=== PATIENT | male | born 1950 | race Caucasian/White ===

== ENCOUNTER → 2023-12-24 09:36 | Outpatient (REF) | payer OTHER, SELFPAY | LOC: MRI 3T 09:36 | PROVIDERS: ATTENDING PHYSICIAN Specialist; FAMILY PHYSICIAN Student in an Organized Health Care Education/Training Program | DX: R97.20 Elevated prostate specific antigen [PSA] (principal) | CPT/HCPCS: 72197; A9575 ==

== ENCOUNTER 2024-02-12 06:07 | Day surgery (SDC) | payer OTHER, SELFPAY ==
[2024-01-30 11:09] LABS: Hematocrit 36.1 % (39.0-52.0); Hemoglobin 12.3 g/dL (13.0-18.0); Mean Corp Hgb Conc. 34.1 g/dL (33.0-37.0); Mean Corpuscular Hgb 29.6 pg (27.0-31.0); Mean Platelet Volume 10.2 fL (7.4-10.4); Platelet Count 232 10^3/uL (130-400); Red Blood Cell Count 4.15 10^6/uL (4.70-6.10); Red Cell Dist. Width 14.5 % (11.5-14.5); White Blood Cell Count 4.7 10^3/uL (4.8-10.8)
[2024-01-30 11:37] LABS: Blood Urea Nitrogen 19 mg/dl (9-20); Calcium 9.5 mg/dl (8.4-10.2); Carbon Dioxide 28 mmol/L (22-30); Chloride 98 mmol/L (98-107); Glucose 83 mg/dl (70-99); Potassium 4.4 mmol/L (3.5-5.1); Sodium 136 mmol/L (135-145); eGFR > 60.00
[2024-01-30 13:39] VITALS: BMI 25.6
[2024-02-12] VITALS (20 sets, daily range): BP systolic 100–150; BP diastolic 72–96; BMI 25.6
[2024-02-12] MEDS: NEOMYCIN ENEMA 1 BOTTLE RECTAL (07:04)
--- NOTE | 2024-02-12 13:38 | SUR.PHASEI ---
Lunch relief, sleeping, arouses with stimulation vss
--- NOTE | 2024-02-12 13:53 | SUR.PHASEI ---
Sleeping, assessment unchanged
[2024-02-12] MEDS: TORADOL 15 MG IV ×2 (15:26→22:12)
[2024-02-12] MEDS: NORMOSOL-R/PLASMALYTE-A 1000 IV (16:30)
--- NOTE | 2024-02-12 17:00 | PTCARENOTE ---
pt admitted to room 2104 at 1615. pt arrived via bed, awake but sleepy. pt oriented to room, call [place] and plan of care with verbalized understanding. admission and assessment completed as documented. will monitor.
[2024-02-12] MEDS: COLACE 100 MG PO (17:47)
[2024-02-12] MEDS: METAMUCIL, KONSYL 1 PACKET PO ×2 (18:23→22:11)
[2024-02-12] MEDS: ProAIR HFA INHALER 2 PUFF INH (19:22)
[2024-02-12] MEDS: ProAIR HFA INHALER INH (19:22)
[2024-02-12] MEDS: FLOVENT 44 MCG INHALER 2 PUFF INH (19:23)
[2024-02-12] MEDS: XALATAN OPHTHALMIC SOLUTION 1 DROP BOTH EYES (22:11)
[2024-02-12] MEDS: CLARITIN 10 MG PO (23:34)
[2024-02-12] MEDS: TYLENOL 650 MG PO (23:36)
[2024-02-13 03:24] VITALS: BP 125/74
[2024-02-13] MEDS: TORADOL 15 MG IV (03:36)
[2024-02-13 07:20] VITALS: BP 143/87
[2024-02-13] MEDS: ProAIR HFA INHALER 2 PUFF INH (07:48)
[2024-02-13] MEDS: FLOVENT 44 MCG INHALER 2 PUFF INH (07:48)
[2024-02-13] MEDS: COLACE 100 MG PO ×2 (08:09→12:17)
[2024-02-13] MEDS: METAMUCIL, KONSYL 1 PACKET PO (08:10)
[2024-02-13] MEDS: THERAGRAN 1 TABLET PO (08:10)
[2024-02-13] MEDS: VITAMIN D3 (cholecalciferol) 25 MCG PO (08:11)
[2024-02-13] MEDS: VITAMIN C 500 MG PO (08:11)
[2024-02-13] MEDS: DIOVAN 320 MG PO (08:11)
--- NOTE | 2024-02-13 09:22 | CM ---
Met with pt at bedside
Pt reports he lives with his in a 3 story home; 4 steps to enter, bath on FF
Retired, active, driving. Occasionally uses cane when ambulating
DME - single point cane
SNF/HH - no past hx
Has ride home at discharge
PCP - Mellissa Garcia
Pharm - [facility]
CM consult - [facility]
Discussed with pt - receptive to HH. No preference
TT [facility] to [facility] for home services
Plan - anticipate home with VN
--- NOTE | 2024-02-13 10:21 | VNURNOTE ---
Home Health Liaison met with patient at bedside to discuss [facility] nurse/therapy, visits, schedule and homebound status. Patient is agreeable and understands that visits at home will be 2-3 x per week to assess and teach medical and jiang management.
[facility] brochure provided with contact information. Patient is aware that [facility] will contact them for start of care in 1-2 days after discharge from .
[facility] referral completed in [facility].
--- NOTE | 2024-02-13 10:45 | W.PN.URO.CBU ---
Today's Communication / Plan
-
discharge
Assessment / Plan
-
stable
Diagnosis
-
Date of Service: February 13, 2024
-
Patient Diagnosis: prostate cancer s/p prostatectomy
Post Op Day: 1
Subjective
-
feels well
Objective
-
Vital Signs
Temp Pulse Resp BP Pulse Ox
98.2 F 77 14 143/87 97
02/13/24 07:20 02/13/24 08:11 02/13/24 07:53 02/13/24 08:11 02/13/24 07:53
Intake and Output
02/12/24 02/13/24 02/14/24
06:59 06:59 06:59
Intake Total 1630 / 1630
Output Total 1525 / 1525
Balance 105 / 105
Intake:
Oral fluids 630 / 630
IV fluids (Total) 1000 / 1000
Normosol 400 / 400
Output:
Urine, Marley 1525 / 1525
Laboratory Results
01/30/24 09:41
01/30/24 09:41
Physical Exam
-
General - well developed, well nourished, no acute distress
Chest - clear bilaterally
Genitalia - Marley with thinly bloody urine
Rectal - normal
Skin - warm & dry with no rash
Neuro - AOx3, no motor deficits
Extremities - no clubbing, no cyanosis, no edema
Dressings - clean, dry, intact
[2024-02-13 11:19] VITALS: BP 122/71
[2024-02-13] MEDS: ProAIR HFA INHALER INH (11:32)
[2024-02-13] MEDS: CLARITIN 10 MG PO (12:11)
[2024-02-13] MEDS: NORMOSOL-R/PLASMALYTE-A IV (12:14)
[2024-02-13] MEDS: SUDAFED 12 HOUR (EXTENDED RELEASE) 240 MG PO (12:14)
[2024-02-13] MEDS: LIPITOR 10 MG PO (12:17)
[2024-02-13] MEDS: ASPIR LOW (ENTERIC COATED) 81 MG PO (12:17)
--- NOTE | 2024-02-13 12:44 | PTCARENOTE ---
pt and educated regarding Marley catheter care, leg bag application and care and hand irrigation PRN obstruction. both pt and verbalized understanding. Pt tolerated Lunch, had a BM and discharged to home with .
== END 2024-02-13 13:21 | disposition home or self-care (01) ==
LOC: SDS 06:07
PROVIDERS: ATTENDING PHYSICIAN Specialist; FAMILY PHYSICIAN Student in an Organized Health Care Education/Training Program
DX: C61 Malignant neoplasm of prostate (principal); C79.11 Secondary malignant neoplasm of bladder
CPT/HCPCS: 55866; 38571; 88305; 88307; 88309; 88332; 80048; 85027; 88331; 93005; 94640

== ENCOUNTER 2024-03-27 08:33 | Outpatient (RCR) | payer OTHER, SELFPAY | END 2024-03-27 23:59 | disposition home or self-care (01) | LOC: RPT 08:33 | PROVIDERS: ATTENDING PHYSICIAN Specialist | DX: M62.89 Other specified disorders of muscle (principal); D07.5 Carcinoma in situ of prostate; Z73.6 Limitation of activities due to disability; R32 Unspecified urinary incontinence; Z90.79 Acquired absence of other genital organ(s); Z98.890 Other specified postprocedural states | CPT/HCPCS: 97110; 97161; 97530 ==

== ENCOUNTER 2024-05-14 12:00 | Outpatient (RCR) | payer OTHER, SELFPAY | END 2024-05-14 23:59 | disposition home or self-care (01) | LOC: RPT 12:00 | PROVIDERS: ATTENDING PHYSICIAN Specialist | DX: M62.89 Other specified disorders of muscle (principal); D07.5 Carcinoma in situ of prostate; Z73.6 Limitation of activities due to disability; R32 Unspecified urinary incontinence; Z98.890 Other specified postprocedural states; Z90.79 Acquired absence of other genital organ(s) | CPT/HCPCS: 97110; 97112 ==

== ENCOUNTER 2024-06-12 13:04 | Outpatient (RCR) | payer OTHER, SELFPAY | END 2024-06-12 23:59 | disposition home or self-care (01) | LOC: RPT 13:04 | PROVIDERS: ATTENDING PHYSICIAN Specialist | DX: M62.89 Other specified disorders of muscle (principal); D07.5 Carcinoma in situ of prostate; Z73.6 Limitation of activities due to disability; R32 Unspecified urinary incontinence; Z98.890 Other specified postprocedural states; Z90.79 Acquired absence of other genital organ(s) | CPT/HCPCS: 97110; 97112 ==

== ENCOUNTER 2024-07-08 14:23 | Outpatient (RCR) | payer OTHER, SELFPAY | END 2024-07-08 23:59 | disposition home or self-care (01) | LOC: RPT 14:23 | PROVIDERS: ATTENDING PHYSICIAN Specialist | DX: M62.89 Other specified disorders of muscle (principal); D07.5 Carcinoma in situ of prostate; M41.50 Other secondary scoliosis, site unspecified; M48.062 Spinal stenosis, lumbar region with neurogenic claudication; Z73.6 Limitation of activities due to disability; R32 Unspecified urinary incontinence; Z90.79 Acquired absence of other genital organ(s); Z98.890 Other specified postprocedural states | CPT/HCPCS: 97110; 97112; 97164; 97530 ==

== ENCOUNTER → 2024-07-15 13:35 | Outpatient (REF) | payer OTHER, SELFPAY | LOC: HWRAD 13:35 | PROVIDERS: ATTENDING PHYSICIAN Specialist; FAMILY PHYSICIAN Student in an Organized Health Care Education/Training Program | DX: N20.0 Calculus of kidney (principal) | CPT/HCPCS: 74018 ==

== ENCOUNTER → 2024-07-21 13:00 | Outpatient (REF) | payer OTHER, SELFPAY | LOC: PAVMRI 13:00 | PROVIDERS: ATTENDING PHYSICIAN Physician Assistant Medical; FAMILY PHYSICIAN Student in an Organized Health Care Education/Training Program | DX: M48.062 Spinal stenosis, lumbar region with neurogenic claudication (principal) | CPT/HCPCS: 72148 ==

== ENCOUNTER → 2024-07-30 11:14 | Outpatient (REF) | payer OTHER, SELFPAY | LOC: RAD 11:14 | PROVIDERS: ATTENDING PHYSICIAN Internal Medicine Gastroenterology; FAMILY PHYSICIAN Student in an Organized Health Care Education/Training Program | DX: R93.5 Abnormal findings on diagnostic imaging of other abdominal regions, including retroperitoneum (principal) | CPT/HCPCS: 74177; Q9967 ==

== ENCOUNTER 2024-08-12 11:58 | Outpatient (RCR) | payer OTHER, SELFPAY | END 2024-08-12 23:59 | disposition home or self-care (01) | LOC: RPT 11:58 | PROVIDERS: ATTENDING PHYSICIAN Specialist | DX: M62.89 Other specified disorders of muscle (principal); D07.5 Carcinoma in situ of prostate; Z73.6 Limitation of activities due to disability; R32 Unspecified urinary incontinence; M41.50 Other secondary scoliosis, site unspecified; M48.062 Spinal stenosis, lumbar region with neurogenic claudication; M79.605 Pain in left leg; M25.552 Pain in left hip; Z98.890 Other specified postprocedural states; Z90.79 Acquired absence of other genital organ(s) | CPT/HCPCS: 97110; 97112; 97140 ==

== ENCOUNTER 2024-09-02 11:03 | Outpatient (RCR) | payer OTHER, SELFPAY | END 2024-09-02 23:59 | disposition home or self-care (01) | LOC: RPT 11:03 | PROVIDERS: ATTENDING PHYSICIAN Specialist | DX: M62.89 Other specified disorders of muscle (principal); D07.5 Carcinoma in situ of prostate; Z73.6 Limitation of activities due to disability; R32 Unspecified urinary incontinence; M41.50 Other secondary scoliosis, site unspecified; M48.062 Spinal stenosis, lumbar region with neurogenic claudication; M79.605 Pain in left leg; M25.552 Pain in left hip; Z98.890 Other specified postprocedural states; Z90.79 Acquired absence of other genital organ(s) | CPT/HCPCS: 97112 ==

== ENCOUNTER 2024-10-08 15:58 | Outpatient (RCR) | payer OTHER, SELFPAY | END 2024-10-08 23:59 | disposition home or self-care (01) | LOC: RPT 15:58 | PROVIDERS: ATTENDING PHYSICIAN Specialist | DX: M62.89 Other specified disorders of muscle (principal); D07.5 Carcinoma in situ of prostate; Z73.6 Limitation of activities due to disability; R32 Unspecified urinary incontinence; M41.50 Other secondary scoliosis, site unspecified; M48.062 Spinal stenosis, lumbar region with neurogenic claudication; M79.605 Pain in left leg; M25.552 Pain in left hip; Z98.890 Other specified postprocedural states; Z90.79 Acquired absence of other genital organ(s) | CPT/HCPCS: 97110; 97112 ==

== ENCOUNTER 2024-11-11 12:07 | Outpatient (RCR) | payer OTHER, SELFPAY | END 2024-11-12 14:55 | disposition home or self-care (01) | LOC: RPT 12:07 | PROVIDERS: ATTENDING PHYSICIAN Specialist | DX: M62.89 Other specified disorders of muscle (principal); D07.5 Carcinoma in situ of prostate; Z73.6 Limitation of activities due to disability; R32 Unspecified urinary incontinence; M41.50 Other secondary scoliosis, site unspecified; M48.062 Spinal stenosis, lumbar region with neurogenic claudication; M79.605 Pain in left leg; M25.552 Pain in left hip; Z98.890 Other specified postprocedural states; Z90.79 Acquired absence of other genital organ(s) | CPT/HCPCS: 97110; 97112; 97530 ==